=== PATIENT | male | born 1960 | race Caucasian/White ===

== ENCOUNTER 2019-12-12 12:54 | Observation (INO) | payer OTHER ==
[~2019-12-12] VITALS: Ht 167.6 cm; Wt 80.3 kg
--- OUTSIDE RECORDS SUMMARY | 2019-12-12 13:02 | XMS REPORT | Summary of Care ---
Author Author [facility] Address [address] [place] [address] Phone Unavailable Care Team Providers Care Director Workers Compensation Name Role Phone ROJAS RADER M.D. Unavailable Unavailable PRASANTH BUNCH ORROJAS Unavailable Unavailable Unavailable Unavailable Functional Status Name Dates Details Functional status health issues are not documented Status: Name Dates Details Cognitive status health issues are not documented Status: Problems Name Dates Details Essential hypertension (401.9, I10) Status: Active Hypercholesterolemia (272.0, E78.00) Status: Active Psoriasis (696.1, L40.9) Status: Active Medications Name Dates Details Atenolol 50 MG Oral Tablet TAKE 1 TABLET DAILY Quantity: 90 ROJAS RADER M.D. Active Gsneq-7-vqkr Ethyl Esters 1 GM Oral Capsule TAKE 1 CAPSULE 4 TIMES A DAY * Quantity: 360 Refills: 1 ROJAS RADER M.D. Active Betamethasone Valerate 0.12 % External Foam as needed * Quantity: 1 Refills: 1 ROJAS RADER M.D. Active 100 GM Can Glucosamine TABS WITH MSM- TAKE 1 TABLET DAILY * Refills: 0 Active Turmeric TABS TAKE 1 TABLET DAILY * Refills: 0 Active Vitamin D3 125 MCG (5000 UT) Oral Tablet TAKE 1 TABLET ONCE A WEEK * Refills: 0 Active Vitamin B Complex TABS as needed * Refills: 0 Active Zinc + Vitamin C LOZG as needed * Refills: 0 Active Lisinopril 10 MG Oral Tablet TAKE 1 TABLET DAILY. * Quantity: 90 Refills: 1 ROJAS RADER M.D. * Start : 31-Jul-2019 Active Pravastatin Sodium 20 MG Oral Tablet TAKE 1 TABLET AT BEDTIME * Quantity: 90 Refills: 1 ROJAS RADER M.D. * Start : 31-Jul-2019 Active Allergies and Adverse Reactions Name Dates Details Amoxicillin TABS (Allergy) Status: Active imipramine (Allergy) Status: Active Penicillins (Allergy) Status: Active Statins (Allergy) Status: Active Past Medical History Name Dates Details History of Calcium oxalate renal calculus (592.0, N20.0) Status: Resolved History of herpes zoster (V12.09, Z86.19) Status: Resolved History of hyperlipidemia (V12.29, Z86.39) Status: Resolved History of hypertension (V12.59, Z86.79) Status: Resolved History of inguinal hernia (V12.79, Z87.19) Status: Resolved Procedures Procedure Dates Details History of Oral Surgery Tooth Extraction Completed History of Skin lesion excision Completed Immunization Name Dates Details Influenza, seasonal, injectable on: 27-May-2018 Family History Name Dates Details Family history of rheumatoid arthritis (V17.7, Z82.61) Status: Active Name Dates Details Family history of rheumatoid arthritis (V17.7, Z82.61) Status: Active Name Dates Details Family history of cerebrovascular accident (CVA) (V17.1, Z82.3) Status: Active Name Dates Details Family history of malignant neoplasm of prostate (V16.42, Z80.42) Status: Active Family history of hypertension (V17.49, Z82.49) Status: Active Family history of hyperlipidemia (V18.19, Z83.438) Status: Active Family history of rheumatoid arthritis (V17.7, Z82.61) Status: Active Social History Name Dates Details - Status: Name Dates Details Never smoker Vital Signs Date Test Result Details No Known Vitals to report Results Date Description Value Details Results not documented Plan of Care Name Dates Details Planned Observations Planned Goals not documented Instructions Name Dates Details Instructions not documented Encounters Appointment; ROJAS RADER M.D. Encounter Diagnosis: Problem not documented On: 31-Jul-2019 9:30 Appointment; ROJAS RADER M.D. Encounter Diagnosis: Problem not documented On: 26-Sep-2019 10:30
--- OUTSIDE RECORDS SUMMARY | 2019-12-12 13:02 | XMS REPORT | Summary of Care ---
Author Author [facility] Address [address] [place] [address] Phone Unavailable Care Team Providers Care Sheriffs Detective Name Role Phone ROJAS RADER M.D. Unavailable Unavailable PRASANTH BUNCH OHROJAS Unavailable Unavailable Unavailable Unavailable Functional Status Name [...] DAILY Quantity: 90 ROJAS RADER M.D. Active Juwfa-9-rejb Ethyl Esters 1 GM Oral Capsule TAKE [...] Details Planned Observations Planned Goals not documented Planned Encounters Appointment; ROJAS RADER M.D. On: 26-Sep-2019 10:30 Instructions Name Dates Details Instructions not documented Encounters Appointment; ROJAS RADER M.D. Encounter Diagnosis: Problem not documented On: 31-Jul-2019 9:30
--- OUTSIDE RECORDS SUMMARY | 2019-12-12 13:02 | XMS REPORT ---
Author Author [facility] Address Unknown Phone Unavailable Care Team Providers Care Dinkey Engine Firer/Fireman Name Role Phone Unavailable Unavailable Problems This patient has no known problems. Allergies, Adverse Reactions, Alerts This patient has no known allergies or adverse reactions. Medications This patient has no known medications.
--- OUTSIDE RECORDS SUMMARY | 2019-12-12 13:02 | XMS REPORT | Summary of Care ---
Author Author [facility] Address [address] [place] [address] Phone Unavailable Care Team Providers Care Senior Business Analyst Name Role Phone ROJAS RADER M.D. Unavailable Unavailable ROJAS ODONNELL MD Unavailable Unavailable Unavailable Unavailable Functional Status Name Dates Details Functional status health issues are not documented Status: Name Dates Details Cognitive status health issues are not documented Status: Problems Name Dates Details Essential hypertension (401.9, I10) Status: Active Hypercholesterolemia (272.0, E78.00) Status: Active Psoriasis (696.1, L40.9) Status: Active Medications Name Dates Details Zinc + Vitamin C LOZG as needed Active Vitamin B Complex TABS as needed * Refills: 0 Active Vitamin D3 125 MCG (5000 UT) Oral Tablet TAKE 1 TABLET ONCE A WEEK * Refills: 0 Active Turmeric TABS TAKE 1 TABLET DAILY * Refills: 0 Active Glucosamine TABS WITH MSM- TAKE 1 TABLET DAILY * Refills: 0 Active Betamethasone Valerate 0.12 % External Foam as needed * Quantity: 1 Refills: 1 ROJAS RADER M.D. Active 100 GM Can Lisinopril 10 MG Oral Tablet TAKE 1 TABLET DAILY. * Quantity: 90 Refills: 1 ROJAS RADER M.D. * Start : 31-Jul-2019 Active Pravastatin Sodium 20 MG Oral Tablet TAKE 1 TABLET AT BEDTIME * Quantity: 90 Refills: 1 ROJAS RADER M.D. * Start : 31-Jul-2019 Active Gmjfm-8-qczf Ethyl Esters 1 GM Oral Capsule TAKE 1 CAPSULE 4 TIMES A DAY * Quantity: 360 Refills: 1 ROJAS RADER M.D. Active Atenolol 50 MG Oral Tablet TAKE 1 TABLET DAILY * Quantity: 90 Refills: 1 ROJAS RADER M.D. Active Allergies and Adverse Reactions Name Dates [...]
--- OUTSIDE RECORDS SUMMARY | 2019-12-12 13:02 | XMS REPORT | Summary of Care ---
Author Author Sandhya Bravo M.A. Organization Unknown Address [facility] Phone Unavailable Care Team Providers Care Electronic Sales And Service Technician Name Role Phone ROJAS RADER M.D. Unavailable Unavailable Sandhya Bravo M.A. Unavailable Unavailable PRASANTH BUNCH ALROJAS Unavailable Unavailable Unavailable Unavailable Functional Status Name Dates Details Functional status health issues are not documented Status: Name Dates Details Cognitive status health issues are not documented Status: Problems Name Dates Details Psoriasis (696.1, L40.9) Status: Active Hypercholesterolemia (272.0, E78.00) Status: Active Essential hypertension (401.9, I10) Status: Active Medications Name Dates Details Atenolol 50 MG Oral Tablet TAKE 1 TABLET DAILY Quantity: 90 ROJAS RADER M.D. Active Xpstb-8-odje Ethyl Esters 1 GM Oral Capsule TAKE 1 CAPSULE 4 TIMES A DAY * Quantity: 360 Refills: 1 ROJAS RADER M.D. Active Betamethasone Valerate 0.12 % External Foam as needed * Quantity: 1 Refills: 1 ROJAS RADER M.D. Active 100 GM Can Glucosamine TABS CHONDROITIN WITH MSM- TAKE 1 TABLET DAILY * Refills: 0 Active Turmeric TABS TAKE 1 TABLET DAILY * Refills: 0 Active Vitamin D3 125 MCG (5000 UT) Oral Tablet TAKE 1 TABLET DAILY * Refills: 0 Active Vitamin B Complex [...] RADER M.D. * Start : 31-Jul-2019 Active CoQ-10 CAPS TAKE 1 CAPSULE DAILY * Refills: 0 Active Allergies and Adverse Reactions Name Dates [...] Z87.19) Status: Resolved Procedures Procedure Dates Details [[facility]] HEPATIC FUNCTION PANEL Date: 26-Sep-2019 [[facility]] LIPID PANEL Date: 26-Sep-2019 History of Oral Surgery Tooth Extraction Completed [...] smoker Vital Signs Date Test Result Details [id number] BP Systolic 117 mm[Hg] Status: Comments: Location: LUE; Position: Sitting BP Diastolic 71 mm[Hg] Status: Comments: Location: LUE; Position: Sitting Height 66 in Status: Weight 181.7 lb Status: Body Mass Index Calculated 29.33 kg/m2 Status: Body Surface Area Calculated 1.92 m2 Status: Temperature 98.8 f Status: Respiration Rate 16 /min Status: Heart Rate 62 /min Status: Results Date Description Value Details Results not documented Plan of Care Name Dates Details Planned Observations Planned Goals not documented Planned Encounters Appointment; ROJAS RADER M.D. On: 30-Jan-2020 9:00 Interventions Provided Follow-ups/Referrals* Follow-up visit in 4 months; Done: 26 Sep 2019 Instructions Name Dates Details Instructions not documented Encounters Appointment; ROJAS RADER M.D. Encounter Diagnosis: Problem not documented On: 31-Jul-2019 9:30
--- OUTSIDE RECORDS SUMMARY | 2019-12-12 13:02 | XMS REPORT | Summary of Care ---
Author Author ROJAS RADER M.D. Organization Unknown Address Unknown Phone Unavailable Care Team Providers Care It Coordinator Name Role Phone ROJAS RADER M.D. Unavailable Unavailable PRASANTH BUNCH UTROJAS Unavailable Unavailable Unavailable Unavailable Functional Status Name [...] DAILY Quantity: 90 ROJAS RADER M.D. Active Lcywo-6-ppmy Ethyl Esters 1 GM Oral Capsule TAKE [...] Z87.19) Status: Resolved Procedures Procedure Dates Details [[facility]] HEPATIC FUNCTION PANEL Date: 26-Sep-2019 [[facility]] LIPID PANEL Date: 26-Sep-2019 History of Oral [...] smoker Vital Signs Date Test Result Details [id number] BP Systolic 117 mm[Hg] Status: Comments: Location: [...] Observations Planned Goals not documented Planned Encounters Follow-up visit in 4 months Appointment; ROJAS RADER M.D. On: 30-Jan-2020 9:00 Interventions Provided Labs/Procedures/Imaging* [[facility]] HEPATIC FUNCTION PANEL; To Be Done: 26 Sep 2019 * [[facility]] LIPID PANEL; To Be Done: 26 Sep 2019 Plan* Continue medications same. Request labwork. RTC in 4 months. Instructions Name Dates Details Instructions not documented Encounters Appointment; ROJAS RADER M.D. Encounter Diagnosis: Problem not documented On: 31-Jul-2019 9:30 Appointment; ROJAS RADER M.D. Encounter Diagnosis: Problem not documented On: 26-Sep-2019 10:30
[2019-12-12] MEDS ORDERED: SODIUM CHLORIDE 0.9% 1000ML 1,000 ML IV STA (13:10)
[2019-12-12] MEDS ORDERED: MORPHINE SULFATE INJ 4 MG/ML INJ 1ML IV STA (13:10)
[2019-12-12] MEDS ORDERED: KETOROLAC TROMETHAMINE 30 MG/ML VIAL IV STA (13:10)
[2019-12-12] MEDS ORDERED: ONDANSETRON HCL INJ 2MG/ML 2ML 2 MG/ML VIAL IV STA (13:10)
[2019-12-12 13:44] LABS: BASOPHILS % 0.3 % (0.0-1.0); EOSINOPHILS % 0.1 % (0.0-6.0); HEMATOCRIT 44.6 % (38.2-49.6); HEMOGLOBIN 15.1 g/dL (14.0-18.0); LYMPHOCYTES # (AUTO) 1.1 (1.0-3.2); LYMPHOCYTES % 6.8 % (18.0-39.1); MEAN CORPUSCULAR HEMOGLOBIN 33.2 pg (28-32); MEAN CORPUSCULAR HGB CONC 33.9 g/dL (31-35); MONOCYTES # (AUTO) 0.7 (0.2-0.8); MONOCYTES % 4.8 % (4.4-11.3); NEUTROPHILS # (AUTO) 13.5 (2.1-6.9); NEUTROPHILS % 87.7 % (38.7-80.0); PLATELET COUNT 140 x10e3/uL (140-360); RED BLOOD COUNT 4.55 x10e6/uL (4.3-5.7); RED CELL DISTRIBUTION WIDTH 11.7 % (11.7-14.4)
[2019-12-12 14:03] LABS: ALBUMIN 4.3 g/dL (3.5-5.0); ALBUMIN/GLOBULIN RATIO 1.2 (0.8-2.0); ANION GAP 11.1 mmol/L (8-16); CALCIUM 9.9 mg/dL (8.4-10.2); CREATININE, SERUM 1.52 mg/dL (0.72-1.25); POTASSIUM 4.1 mmol/L (3.5-5.1)
[2019-12-12 14:04] LABS: CLARITY,URINE CLOUDY (CLEAR); COLOR,URINE YELLOW (YELLOW); LEUKOCYTE ESTERASE ,URINE NEGATIVE (NEGATIVE); NITRITE,URINE NEGATIVE (NEGATIVE); PROTEIN,URINE DIPSTICK NEGATIVE (NEGATIVE)
[2019-12-12 14:05] LABS: BILIRUBIN,URINE SMALL (NEGATIVE); KETONES,URINE 1+ (NEGATIVE); URINE UROBILINOGEN 0.2 mg/dL (0.2 - 1)
[2019-12-12 14:09] LABS: RBC,URINE 0-5 /HPF (0-5)
[2019-12-12 14:10] LABS: BACTERIA,URINE FEW /HPF; EPITHELIAL CELLS,URINE RARE /LPF
--- NOTE | 2019-12-12 14:39 | Diagnostic Imaging Report ---
EXAM: CT Abdomen and Pelvis WITHOUT intravenous contrast INDICATION: Flank pain COMPARISON: None. TECHNIQUE: Abdomen and pelvis were scanned utilizing a multidetector helical scanner from the lung base to the pubic symphysis without administration of IV contrast. Coronal and sagittal reformations were obtained. IV CONTRAST: None ORAL CONTRAST: Water COMPLICATIONS: None RADIATION DOSE: Total DLP: (DLP x 0.015 x size factor) mGy*cm Dose modulation, iterative reconstruction, and/or weight based adjustment of the mA/kV was utilized to reduce the radiation dose to as low as reasonably achievable. FINDINGS: LOWER THORAX: Normal. HEPATOBILIARY: No focal hepatic lesions. No biliary ductal dilatation. The gallbladder appears unremarkable. SPLEEN: No splenomegaly. PANCREAS: No focal masses or ductal dilatation. ADRENALS: No adrenal nodules. KIDNEYS/URETERS: 4 mm right distal ureteral calculus with associated mild right hydroureteronephrosis and mild right perinephric stranding. Additional 2 mm right lower pole renal calculus. No left urinary calculi or hydronephrosis. PELVIC ORGANS/BLADDER: The prostate is mildly enlarged, measuring up to 5.0 x 4.1 x 4.1 cm with corresponding volume estimate of 44cc. PERITONEUM / RETROPERITONEUM: No free air or fluid. LYMPH NODES: No lymphadenopathy. VESSELS: Mild atherosclerotic calcifications of the nonaneurysmal abdominal aorta and major branches. GI TRACT: No abnormal bowel thickening. No bowel obstruction. Normal appendix. BONES AND SOFT TISSUES: No acute osseous injury. No suspicious lytic or blastic lesions. IMPRESSION: 4 mm right distal ureteral calculus with associated mild right hydroureteronephrosis and mild right perinephric stranding. Additional 2 mm right lower pole renal calculus. No left urinary calculi or hydronephrosis. Prostatomegaly. Signed by: Amanda Macias MD on 12/12/2019 2:36 PM
[2019-12-12] MEDS ORDERED: CEFTRIAXONE SOD 1 GM VIAL IV SCH (15:00)
[2019-12-12] MEDS ORDERED: CEFTRIAXONE SOD 1 GM/NS 50 ML 50 ML IV ONE (15:15)
--- NOTE | 2019-12-12 18:10 | NUR ---
RCD PT FROM ER BY BED PT IS ALERT AND ORIENTED VITALS CHECKED PT RESTING ON BED BED LOW AND LOCKED CALL LIGHT IN REACH
--- NOTE | 2019-12-12 18:39 | NUR ---
PT RESTING ON BED BED SIDE REPORT GIVE TO ONCOMING NURSE, TALKED THE NURSE WHILE GIVING REPORT YOU HAVE TO DO THE ADMISSION PROCESS SINCE PT CAME AT 181
[2019-12-12 19:44] VITALS: BP 135/72
[2019-12-12 20:00] VITALS: BP 135/72
[2019-12-12] MEDS ORDERED: PRAVASTATIN SOD40 MG PO (20:36)
[2019-12-12] MEDS ORDERED: PRAVASTATIN SOD20 MG (20:36)
[2019-12-12] MEDS ORDERED: LISINOPRIL10 MG PO (20:39)
[2019-12-12] MEDS ORDERED: ATENOLOL50 MG PO (20:39)
[2019-12-12] MEDS ORDERED: COQ-1030 MG PO (20:39)
[2019-12-12] MEDS ORDERED: MORPHINE SULFATE 2 MG/ML SYR 1ML IV PRN (22:15)
[2019-12-12] MEDS ORDERED: ACETAMINOPHEN 325 MG TAB PO PRN (22:45)
[2019-12-12] MEDS ORDERED: ONDANSETRON HCL INJ 2MG/ML 2ML 2 MG/ML VIAL IV PRN (22:45)
[2019-12-13] VITALS (9 sets, daily range): BP systolic 102–131; BP diastolic 63–81
[2019-12-13] MEDS: SODIUM CHLORIDE 0.9% 1000ML 1,000 ML IV SCH ×3 (05:20→17:39)
[2019-12-13 05:56] LABS: BASOPHILS % 0.4 % (0.0-1.0); EOSINOPHILS # (AUTO) 0.1 (0.0-0.4); EOSINOPHILS % 1.4 % (0.0-6.0); HEMATOCRIT 39.8 % (38.2-49.6); HEMOGLOBIN 13.2 g/dL (14.0-18.0); LYMPHOCYTES # (AUTO) 2.4 (1.0-3.2); LYMPHOCYTES % 24.3 % (18.0-39.1); MEAN CORPUSCULAR HEMOGLOBIN 33.3 pg (28-32); MEAN CORPUSCULAR HGB CONC 33.2 g/dL (31-35); MEAN CORPUSCULAR VOLUME 100.5 fL (81-99); MONOCYTES % 10.4 % (4.4-11.3); NEUTROPHILS # (AUTO) 6.3 (2.1-6.9); NEUTROPHILS % 63.2 % (38.7-80.0); PLATELET COUNT 111 x10e3/uL (140-360); RED BLOOD COUNT 3.96 x10e6/uL (4.3-5.7); RED CELL DISTRIBUTION WIDTH 11.8 % (11.7-14.4)
[2019-12-13 06:16] LABS: ALBUMIN 3.4 g/dL (3.5-5.0); ALBUMIN/GLOBULIN RATIO 1.3 (0.8-2.0); CREATININE, SERUM 1.5 mg/dL (0.72-1.25)
[2019-12-13 06:40] LABS: CHOL/HDL RATIO 4.9 (3.9-4.7); PHOSPHORUS 4.1 MG/DL (2.3-4.7)
[2019-12-13 07:00] LABS: THYROID STIMULATING HORMONE 0.094 uIU/mL (0.350-4.940)
--- NOTE | 2019-12-13 07:10 | NUR ---
RCD PT AT BED PT IS ALERT AND ORIENTED PT RESTING ON BED NO SIGNS OF ANY DISTRESS NOTED IV PATENT BED LOW AND LOCKED CALL LIGHT IN REACH
[2019-12-13] MEDS: ATENOLOL 50 MG TAB PO SCH (09:00)
[2019-12-13] MEDS: FAMOTIDINE 20 MG/2 ML VIAL IV SCH ×2 (09:00→17:00)
--- NOTE | 2019-12-13 11:00 | NUR ---
STRAINER GIVEN TO THE PT TO STRAIN THE URINE
--- NOTE | 2019-12-13 13:35 | NUR ---
LIVES INDEPENDENTLY AT HOME W/ EMERGENCY CONTACT: : KWAN WILCOX [phone] EMPLOYMENT STATUS: MANAGER [employer] PCP: DR. RADER HOME HEALTH: NONE DME: NONE DC PLAN: RETURN HOME TO , AND TO WORK
--- NOTE | 2019-12-13 13:51 | Diagnostic Imaging Report ---
Exam: KUB - 2 views Clinical History: Renal calculus. Comparison: CT abdomen/pelvis 12/12/2019. Findings/Impression: There is a 4 mm calcification in the right hemipelvis, corresponding to right UVJ stone noted on CT from 12/12/2019. Punctate 2 mm right lower pole renal stone. Nonobstructive bowel gas pattern. No evidence of free intraperitoneal air. No acute bony abnormality. Signed by: Dr. Verónica Ramirez MD on 12/13/2019 1:47 PM
--- NOTE | 2019-12-13 19:00 | NUR ---
PT RESTING ON BED BED SIDE REPORT GIVE TO ONCOMING NURSE
[2019-12-13] MEDS ORDERED: PRAVASTATIN 20 MG TAB PO SCH (21:00)
[2019-12-14] VITALS: BP 141/72
[2019-12-14] MEDS: SODIUM CHLORIDE 0.9% 1000ML 1,000 ML IV SCH ×2 (01:10→11:50)
[2019-12-14 04:00] VITALS: BP 129/75
[2019-12-14 06:12] LABS: BASOPHILS # (AUTO) 0.1 (0.0-0.1); BASOPHILS % 0.7 % (0.0-1.0); EOSINOPHILS # (AUTO) 0.2 (0.0-0.4); EOSINOPHILS % 2.2 % (0.0-6.0); HEMATOCRIT 42.2 % (38.2-49.6); HEMOGLOBIN 13.7 g/dL (14.0-18.0); LYMPHOCYTES # (AUTO) 2.4 (1.0-3.2); LYMPHOCYTES % 34.6 % (18.0-39.1); MEAN CORPUSCULAR HGB CONC 32.5 g/dL (31-35); MEAN CORPUSCULAR VOLUME 101.7 fL (81-99); MONOCYTES # (AUTO) 0.6 (0.2-0.8); MONOCYTES % 7.9 % (4.4-11.3); NEUTROPHILS # (AUTO) 3.8 (2.1-6.9); NEUTROPHILS % 54.5 % (38.7-80.0); PLATELET COUNT 119 x10e3/uL (140-360); RED BLOOD COUNT 4.15 x10e6/uL (4.3-5.7); RED CELL DISTRIBUTION WIDTH 11.9 % (11.7-14.4)
[2019-12-14 06:39] LABS: ANION GAP 10.8 mmol/L (8-16); CALCIUM 8.9 mg/dL (8.4-10.2); CREATININE, SERUM 1.28 mg/dL (0.72-1.25); POTASSIUM 3.8 mmol/L (3.5-5.1)
[2019-12-14 08:34] VITALS: BP 127/80
[2019-12-14] MEDS: FAMOTIDINE 20 MG/2 ML VIAL IV SCH (09:00)
[2019-12-14 09:02] VITALS: BP 127/80
[2019-12-14] MEDS: ATENOLOL 50 MG TAB PO SCH (09:07)
[2019-12-14 12:31] VITALS: BP 138/72
[2019-12-14] MEDS ORDERED: LEVAQUIN500 MG PO (12:35)
[2019-12-14] MEDS ORDERED: TYLENOL WITH C1 EACH PO (12:36)
--- NOTE | 2019-12-14 12:55 | Discharge Summary ---
CHIEF COMPLAINT: Right flank pain. HISTORY: The patient is a 59-year-old male admitted with right flank pain and right back pain via the Emergency Department. The pain had started about one week prior to admission and was worse on the day of admission. He drank a large cup of water and had penile tip pain with only producing a few drops of urine while attempting to urinate. He did have urgency and difficulty initiating a stream the morning of admission. PAST MEDICAL HISTORY: Calcium oxalate kidney stones, hypertension, hyperlipidemia, and right inguinal hernia. He takes betamethasone on occasion for psoriasis. Basal cell carcinoma, squamous cell carcinoma. Diverticulosis. This is his fourth major kidney stones since 1984. Previous ECG and stress test as well as Holter monitor, all negative. PAST SURGICAL HISTORY: He had wisdom teeth removed and basal cell carcinoma excision and squamous cell carcinoma excision. FAMILY HISTORY: He had an uncle who had a "GreenLight procedure." Brother had BPH and took Uroxatral, renal calculi, and hypertension. Father had end-stage renal disease, prostate cancer, hypertension, and coronary artery disease, with cardiac stents. Mother had TIA and coronary artery disease. SOCIAL HISTORY: He denies any use of tobacco or illicit drugs. He drinks alcohol socially, approximately five drinks per year. ALLERGIES: IMIPRAMINE, PENICILLIN, AND STATIN. ADMITTING DIAGNOSES: 1. Right, single ureterolithiasis with hydronephrosis. 2. Possible acute urinary tract infection with leukocytosis. 3. Possible acute kidney injury with creatinine 1.52. 4. Controlled hypertension. 5. Hyperlipidemia. 6. Acute hyperglycemia. 7. Acute hyponatremia, mild. 8. BPH. 9. Mild psoriasis. DISCHARGE DIAGNOSES: 1. Right, single ureterolithiasis with hydronephrosis. 2. Acute kidney injury with dehydration. 3. Controlled hypertension. 4. Hyperlipidemia. 5. BPH. 6. Mild psoriasis. On admission, WBCs 15.44, hemoglobin 15.1, hematocrit 44.6, and platelets 140. Sodium 135, potassium 4.1, CO2 of 27, BUN 17, creatinine 1.52, estimated GFR 47, and lactic acid 1.1. Hemoglobin A1c 5.2. LFTs within normal limits. Triglycerides 96, cholesterol 163, LDL 111, HDL 33, and lipase 30. TSH 0.094. Urinalysis, cloudy, 1+ ketones, 2+ blood. Final urine culture showed no growth after 36-[address] and pelvis CT showed 4 mm right distal ureteral calculus with associated mild right hydroureteronephrosis and mild right perinephric stranding, additional 2 mm right lower pole renal calculus, and prostatomegaly. KUB done on 12/12 showed a 4 mm calcification in the right hemipelvis corresponding to right UVJ stone noted on CT from 12/11, punctate 2 mm right lower pole renal stone, nonobstructive bowel gas pattern. The patient is seen this morning and denies any dysuria. He has been drinking fluids well and normal saline as continued at 100 mL an hour since yesterday. He states he did not sleep very much as he was urinating every hour. Urine is looking more clear. No change in physical exam. Vital signs today temperature 97.8, heart rate 65, blood pressure 127/80, respirations 19, and oxygen saturation 97%. Today, sodium 144, potassium 3.8, chloride 109, CO2 of 28, BUN 13, creatinine 1.28, and estimated GFR 57. WBCs 6.93, hemoglobin 13.7, hematocrit 42.2, and platelets 119. The patient can continue on cardiac diet. Activity level as tolerated. Follow up with Dr. Sandhu, who is the urologist following. As directed per Urology, okay to discharge home at this time. The patient can follow up with Dr. Ramirez, PCP in 1-2 weeks. Dictated by Gerardo Gutierrez NP Paul Raymond MD H[facility]/MODL /[id number]
--- NOTE | 2019-12-15 09:02 | Consultation ---
DATE OF CONSULTATION: 12/13/2019 Urology Consultation Consultation is called by Dr. Raymond. HISTORY OF PRESENT ILLNESS: Mr. Hill is a very pleasant 59-year-old male patient with a history of kidney stones prior, began experiencing sharp acute right-sided flank pain. Denied any fevers. No chills. Positive for nausea. Denied vomiting. PAST MEDICAL HISTORY: As above. MEDICATIONS: Please see MAR. ALLERGIES: TO PENICILLIN, STATINS, AND IMIPRAMINE. SOCIAL HISTORY: Denied smoking or drinking. FAMILY HISTORY: Denied urologic stones or malignancies. REVIEW OF SYSTEMS: Noncontributory, other than problems mentioned above for 12-organ systems. PHYSICAL EXAMINATION: GENERAL: Elderly male, in no acute distress. VITAL SIGNS: Currently, temperature 98.1, pulse 57, respirations 20, and blood pressure 131/81. HEENT: Sclerae anicteric. NECK: Supple. BACK: Without costovertebral bilaterally. ABDOMEN: Soft, it is nontender. It is nondistended. There is no palpable mass, no palpable hernias, no palpable adenopathy. : Normal male external genitalia. EXTREMITIES: No edema. NEURO: Moves all extremities. PSYCH: Alert and mood appropriate. SKIN: Intact. Normal color. PERTINENT LABORATORY DATA: CT scan revealing a 4 mm x 4 mm distal right ureteral calculus with mild right hydronephrosis, 2 mm right lower pole renal calculus, large prostate 44 mL. Urinalysis 0 to 5 reds, no whites. Sodium 135, potassium 4.1, chloride 101, bicarb 27, BUN 17, creatinine 1.52, glucose 140. Hemoglobin 13, hematocrit 39, platelet count 111,000, and white blood cell count 9990. IMPRESSION: 1. Right ureteral calculus. 2. Right hydronephrosis. 3. Pyelonephritis, diagnosed on admission. 4. Microscopic hematuria. 5. Hypertension. 6. Thrombocytopenia. 7. Renal colic. 8. Renal calculi. PLAN: Employ a trial passage with greater than 60% success rate. Should the patient become pain-free, whished to undergo as an outpatient, he may do this as well. Thank you for allowing me to participate in the care of your patient, we will be happy to follow along with you. MD AZUL Hills/MODL /[id number] cc: Paul Raymond MD
== END 2019-12-14 13:11 | disposition home or self-care (01) ==
LOC: ER 12:54 → ERHOLD 14:57 → MED/SURG2 18:10
PROVIDERS: ADMIT Internal Medicine; ATTEND Internal Medicine
DX: N13.6 Pyonephrosis (principal); N17.9 Acute kidney failure, unspecified; I10 Essential (primary) hypertension; E78.5 Hyperlipidemia, unspecified; R73.9 Hyperglycemia, unspecified; E87.1 Hypo-osmolality and hyponatremia; N40.0 Benign prostatic hyperplasia without lower urinary tract symptoms; L40.9 Psoriasis, unspecified; D69.6 Thrombocytopenia, unspecified; Z80.42 Family history of malignant neoplasm of prostate; Z84.1 Family history of disorders of kidney and ureter; Z82.49 Family history of ischemic heart disease and other diseases of the circulatory system; Z88.0 Allergy status to penicillin; Z88.8 Allergy status to other drugs, medicaments and biological substances
CPT/HCPCS: 36415 ×3; 74018; 74176; 80048; 80053 ×2; 80061; 81001; 83036; 83605; 83690; 83735; 84100; 84443; 85025 ×3; 87086; 99284; G0378 ×3; J0696; J1885; J2270 ×2; J2405; J7030 ×3

== ENCOUNTER 2024-10-19 05:18 | Emergency (ER) | payer OTHER ==
[~2024-10-19] VITALS: Ht 320 cm; Wt 80.3 kg
[~2024-10-19 05:18] MED LIST: ATENOLOL50 MG PO; COQ-1030 MG PO; LEVAQUIN500 MG PO; LISINOPRIL10 MG PO; PRAVASTATIN SOD20 MG; PRAVASTATIN SOD40 MG PO; TYLENOL WITH C1 EACH PO
[2024-10-19 05:20] VITALS: TEMP 98.7
[2024-10-19 05:49] LABS: BASOPHILS # (AUTO) 0.1 (0.0-0.1); BASOPHILS % 0.6 % (0.0-1.0); EOSINOPHILS # (AUTO) 0.3 (0.0-0.4); EOSINOPHILS % 3.9 % (0.0-6.0); HEMATOCRIT 41.2 % (38.2-49.6); LYMPHOCYTES # (AUTO) 1.3 (1.0-3.2); LYMPHOCYTES % 16.1 % (18.0-39.1); MEAN CORPUSCULAR HEMOGLOBIN 33.9 pg (28-32); MEAN CORPUSCULAR VOLUME 99.8 fL (81-99); MONOCYTES # (AUTO) 0.5 (0.2-0.8); MONOCYTES % 5.9 % (4.4-11.3); NEUTROPHILS # (AUTO) 5.8 (2.1-6.9); NEUTROPHILS % 73.2 % (38.7-80.0); PLATELET COUNT 150 x10e3/uL (140-360); RED BLOOD COUNT 4.13 x10e6/uL (4.3-5.7)
[2024-10-19 06:06] LABS: CORONAVIRUS COVID-19 AG NEGATIVE (NEGATIVE); INFLUENZA A AG NEGATIVE (NEGATIVE); INFLUENZA B AG NEGATIVE (NEGATIVE); STREPTOCOCCUS GRP A ANTIGEN NEGATIVE (NEGATIVE)
[2024-10-19 06:08] LABS: ALBUMIN/GLOBULIN RATIO 1.4 (0.8-2.0); ANION GAP 13.8 mmol/L (8-16); BILIRUBIN,TOTAL 0.5 mg/dL (0.2-1.2); CALCIUM 9.1 mg/dL (8.4-10.2); CREATININE, SERUM 1.26 mg/dL (0.72-1.25); POTASSIUM 3.8 mmol/L (3.5-5.1); TOTAL PROTEIN 6.8 g/dL (6.5-8.1)
[2024-10-19 06:09] LABS: LIPASE 85 U/L (8-78)
[2024-10-19 06:29] LABS: TROPONIN I < 0.001 ng/mL (0-0.300)
[2024-10-19 06:30] VITALS: PULSE 70; RESP 17; O2SAT 97
[2024-10-19] MEDS: SODIUM CHLORIDE 0.9% 500ML 500 ML IV ONE (07:08)
[2024-10-19] MEDS ORDERED: PANTOPRAZOLE SO40 MG PO (07:32)
[2024-10-19] MEDS ORDERED: DICYCLOMINE HCL20 MG PO (07:32)
[2024-10-19] MEDS ORDERED: ONDANSETRON ODT4 MG PO (07:32)
[2024-10-19] MEDS ORDERED: IOPAMIDOL 370 MG/ML 100 ML INFUS..BTL INJ ONE (10:29)
== END 2024-10-19 08:25 | disposition home or self-care (01) ==
LOC: ER 05:33
DX: R10.13 Epigastric pain (principal); K80.20 Calculus of gallbladder without cholecystitis without obstruction; R09.89 Other specified symptoms and signs involving the circulatory and respiratory systems; M19.09 Primary osteoarthritis, other specified site; Z11.52 Encounter for screening for COVID-19; R94.31 Abnormal electrocardiogram [ECG] [EKG]; F17.210 Nicotine dependence, cigarettes, uncomplicated
CPT/HCPCS: 36415; 71045; 74177; 80053; 83518; 83690; 84484; 85025; 87070; 87428; 93005; 99284; J2470; J7040; Q9967

== ENCOUNTER 2025-03-23 02:56 | Emergency (ER) | payer OTHER ==
[~2025-03-23] VITALS: Ht 167.6 cm; Wt 80.3 kg
[~2025-03-23 02:56] MED LIST changes: +DICYCLOMINE HCL20 MG PO; +ONDANSETRON ODT4 MG PO; +PANTOPRAZOLE SO40 MG PO
[2025-03-23] MEDS: ONDANSETRON HCL INJ 2MG/ML 2ML 2 MG/ML VIAL IV STA (03:12)
[2025-03-23] MEDS: KETOROLAC TROMETHAMINE 30 MG/ML VIAL IV STA (03:13)
[2025-03-23 03:18] LABS: BASOPHILS % 0.4 % (0.0-1.0); EOSINOPHILS % 0.3 % (0.0-6.0); LYMPHOCYTES % 8.4 % (18.0-39.1); MONOCYTES % 4.3 % (4.4-11.3); NEUTROPHILS % 86.3 % (38.7-80.0); RED CELL DISTRIBUTION WIDTH 11.7 % (11.7-14.4)
[2025-03-23 03:31] LABS: LEUKOCYTE ESTERASE ,URINE NEGATIVE (NEGATIVE); PROTEIN,URINE DIPSTICK 1+ (NEGATIVE); URINE UROBILINOGEN 0.2 mg/dL (0.2 - 1)
[2025-03-23 03:35] LABS: EPITHELIAL CELLS,URINE FEW /LPF
[2025-03-23 03:37] LABS: EST GLOMERULAR FILTRATION RATE 61.0 ML/MIN (>=60)
[2025-03-23] MEDS ORDERED: CEFDINIR300 MG PO (05:18)
[2025-03-23] MEDS ORDERED: FLOMAX0.4 MG PO (05:18)
[2025-03-23] MEDS ORDERED: ACETAMINOPHEN-1 EAC4 PO (05:18)
[2025-03-23] MEDS ORDERED: ONDANSETRON ODT4 MG SL (05:18)
[2025-03-23 05:19] VITALS: PULSE 63; RESP 18; TEMP 98.6; O2SAT 99
[2025-03-23 05:30] VITALS: TEMP 97.8
== END 2025-03-23 05:30 | disposition home or self-care (01) ==
LOC: ER 03:05
DX: R10.31 Right lower quadrant pain (principal); N13.2 Hydronephrosis with renal and ureteral calculous obstruction; K80.20 Calculus of gallbladder without cholecystitis without obstruction; K57.90 Diverticulosis of intestine, part unspecified, without perforation or abscess without bleeding; R11.2 Nausea with vomiting, unspecified
CPT/HCPCS: 36415; 74176; 80053; 81001; 83690; 85025; 99284; J1885; J2405